=== PATIENT | male | born 1965 | race Caucasian/White ===

== ENCOUNTER 2020-05-16 07:04 | Emergency (ER) | payer BC ==
--- NOTE | 2020-05-16 07:44 | EDM.PDOC ---
ED HPI GENERAL MEDICAL PROBLEM - General Chief Complaint: Lower Extremity Injury/Pain Stated Complaint: LEFT LEG INJURY Time Seen by Provider: 05/16/20 07:18 Source of Information: Reports: Patient History Limitations: Reports: No Limitations - History of Present Illness INITIAL COMMENTS - FREE TEXT/NARRATIVE: Patient reports he was walking last PM while carrying 2 lawn chairs and tripped and fell over one of the chairs onto the ground. He reports pain to the anterior left tibia proximal to the knee and difficulty bearing weight. Onset: Other (yesterday) Onset Date: 05/15/20 Onset Time: 21:00 Location: Reports: Lower Extremity, Left Front/Back Body Image: 1 - Pain Quality: Reports: Sharp Severity: Moderate Improves with: Reports: None Worsens with: Reports: Movement Context: Reports: Trauma Associated Symptoms: Reports: No Other Symptoms Left Lower Leg Pain Score (Numeric/FACES): 8 Past Medical History - Past Health History Medical/Surgical History: Denies Medical/Surgical History Social & Family History - Tobacco Use Smoking Status *Q: Never Smoker - Caffeine Use Caffeine Use: Reports: Coffee - Recreational Drug Use Recreational Drug Use: No Review of Systems - Review of Systems Review Of Systems: See Below Constitutional: Reports: No Symptoms Respiratory: Reports: No Symptoms Cardiovascular: Reports: No Symptoms Musculoskeletal: Reports: Leg Pain, Joint Pain. Denies: Neck Pain, Back Pain, Hand Pain, Foot Pain, Muscle Pain, Muscle Stiffness Neurological: Reports: No Symptoms ED EXAM, GENERAL - Physical Exam Exam: See Below Exam Limited By: No Limitations General Appearance: Alert, WD/WN, No Apparent Distress Head: Atraumatic, Normocephalic Neck: Normal Inspection, Supple, Non-Tender, Full Range of Motion Respiratory/Chest: No Respiratory Distress, Lungs Clear, Normal Breath Sounds, No Accessory Muscle Use, Chest Non-Tender Cardiovascular: Normal Peripheral Pulses, Regular Rate, Rhythm, No Edema, No Gallop, No JVD, No Murmur, No Rub Back Exam: Normal Inspection, Full Range of Motion, NT Extremities: No Pedal Edema, Normal Capillary Refill, Leg Pain, Limited Range of Motion, Redness. No: Joint Swelling Neurological: Alert, Oriented, CN II-XII Intact, Normal Cognition, Normal Gait, Normal Reflexes, No Motor/Sensory Deficits Front/Back Body Diagram: 1 - Tenderness over left tibial tuberosity Course - Vital Signs Last Recorded V/S: Last Vital Signs Temp 97.9 F 05/16/20 07:21 Pulse 89 05/16/20 07:21 Resp 16 05/16/20 07:21 BP 125/83 05/16/20 07:21 Pulse Ox 99 05/16/20 07:21 - Orders/Labs/Meds Orders: Active Orders 24 hr Category Date Time Status Knee 3V Lt [CR] Stat Exams 05/16/20 07:33 Taken Tibia Fibula Lt [CR] Stat Exams 05/16/20 07:33 Taken Departure - Departure Time of Disposition: 09:07 Disposition: Home, Self-Care 01 Condition: Good Clinical Impression: Contusion of knee, left Qualifiers: Encounter type: initial encounter Qualified Code(s): S80.02XA - Contusion of left knee, initial encounter - Discharge Information *PRESCRIPTION DRUG MONITORING PROGRAM REVIEWED*: Not Applicable *COPY OF PRESCRIPTION DRUG MONITORING REPORT IN PATIENT TIFFANI: Not Applicable Instructions: How to Use Cold Therapy, [id number], Crutch Use, Adult, [id number] Referrals: PCP,None [Primary Care Provider] - Forms: ED Department Discharge Sepsis Event Note (ED) - Evaluation Sepsis Screening Result: No Definite Risk - Focused Exam Vital Signs: Vital Signs Temp Pulse Resp BP Pulse Ox 05/16/20 07:21 97.9 F 89 16 125/83 99 - My Orders Last 24 Hours: My Active Orders 05/16/20 07:33 Knee 3V Lt [CR] Stat Tibia Fibula Lt [CR] Stat - Assessment/Plan Last 24 Hours: My Active Orders 05/16/20 07:33 Knee 3V Lt [CR] Stat Tibia Fibula Lt [CR] Stat Plan: DIFFERENTIAL DIAGNOSIS: Fracture Sprain Strain Abrasion Contusion Amongst Others PLAN: XR MDM: The patient has point tenderness over the left tibial tuberosity with pain worsened with weight bearing. XR of the left knee and tib/fib will be done. The patient declined analgesics. Patient's XR as interpreted by the radiologist and reviewed by me did not demonstrate any acute fracture or dislocation. I discussed immobilization and crutch bearing with the patient and he declines immobilization and reports he has crutches at home that he will utilize until his pain improves. Patient is stable and appropriate for discharged from the emergency department. He was given return warnings as well as follow-up instructions with his PCP. He decline pain medication and all questions were answered. FINAL PLAN: Crutch bearing and advancement to full weight bearing as tolerated
--- NOTE | 2020-05-16 09:10 | CR ---
DATE OF SERVICE: 05/16/2020 CLINICAL DATA: Fall Left knee: The mild osteoarthritic changes. No acute fracture or dislocation. There is a small joint effusion. No lytic or blastic bone lesions. MTDD
--- NOTE | 2020-05-16 09:11 | CR ---
DATE OF SERVICE: 05/16/2020 CLINICAL DATA: Fall Left lower leg: No acute fracture or dislocation. No lytic or blastic bone lesions. MTDD
== END 2020-05-16 09:26 | disposition home or self-care (01) ==
LOC: LB.ED 07:04
DX: S80.02XA Contusion of left knee, initial encounter (principal); W01.0XXA Fall on same level from slipping, tripping and stumbling without subsequent striking against object, initial encounter; Y93.01 Activity, walking, marching and hiking
CPT/HCPCS: 73562-LT; 73590-LT; 99282; 99283-25